=== PATIENT | male | born 1950 | race Caucasian/White ===

== ENCOUNTER → 2016-06-25 | Outpatient (CLI) | payer OTHER ==
[~2016-06-25] VITALS: Ht 182.9 cm; Wt 84.3 kg
[~2016-06-25] MED LIST: BUTALB-APAP-CA1 EACH PO; CELEBREX 200 M200 M1 PO; DICLOFENAC SOD50 M1 PO; EFFEXOR XR75 MG PO; EMBEDA ER 20-01 EACH PO; EMBEDA PO; FIORICET 50-301 EACH PO; FLEXERIL PO; HYDROCODON-ACE1 EAC5 PO; HYDROCODONE-AP1 EAC6 PO; HYSINGLA ER20 MG PO; IMITREX100 MG PO; LORTAB 10-3251 EACH PO; MIRALAX255 GM; MOBIC15 MG PO; NABUMETONE 750750 M1 PO; NEURONTIN 300300 M1 PO; NORCO 5-325 TA1 EACH PO; ONDANSETRON HCL8 M2 PO; PREVACID30 MG PO; PRISTIQ50 MG PO; PROZAC20 MG PO; TOPAMAX 25 MG T25 M1 PO; VITAMIN D1000 UNI1 PO; ZOHYDRO ER10 MG PO
--- NOTE | ~2016-06-25 | HPC ---
[facility] [place] [address] [place] [address] PAIN MANAGEMENT CONSULTATION Name: PHILIPP MATIAS [id number] Admission: 06/25/16 Attend Phys: Sylvain Gallardo MD Discharge: Date of : 46 Report #: [id number] THIS REPORT FOR: //name// CC: Sylvain Linares DATE OF REGISTRATION: 06/25/2016. Followup visit for chronic low back pain with radiculopathy. The patient returns to the pain clinic today for renewal of medication. He would like to try a new anti-inflammatory and I have decided to take him off of nabumetone and place him on Celebrex 200 mg daily. The ____ medications, risks and benefits of nonsteroidal anti-inflammatory drugs, the risk of cardiac events were all discussed with the patient. Today, he reports his pain is a 7/10, it is at the low back radiating into his left leg involving the left knee. He has had epidural injections in the past, which have been helpful for this condition. PHYSICAL EXAMINATION: GENERAL: He is pleasant, does not appear overly anxious today. He is here by himself, sometimes he is here with his . He says he is doing well, does not appear to be a fall risk. VITAL SIGNS: His blood pressure is 133/93, heart rate is 83, his height is 6 feet and his BMI is 25.2. MUSCULOSKELETAL: He has limitations in the range of motion of his lumbar spine and straight leg raising bilaterally reproduces pain, more so on the left than the right today. IMPRESSION: Low back pain with radiculopathy. Given his good response to the last injection, I will repeat the injection at L4-L5. Potential risks and benefits were discussed. He would like to proceed. The patient was taken to the fluoroscopic suite ____ placed prone, skin prepped with ChloraPrep, skin anesthetized over the L4-L5 interspace. A 20-gauge Tuohy epidural needle was advanced in the epidural space with loss of resistance technique. No blood or CSF was aspirated. A 1 mL of Omnipaque was injected. Good spread of dye was observed in the epidural space followed by 3 mL of 0.5% lidocaine mixed with 80 mg of triamcinolone. He tolerated the procedure well and was observed for 45 minutes and discharged. Followup visit as needed. By: 1349 Sylvain Gallardo MD /nt
[2016-06-25 10:42] VITALS: BP 133/93
== END | disposition home or self-care (01) ==
LOC: PAIN 01-29 08:15
DX: M54.16 Radiculopathy, lumbar region (principal)

== ENCOUNTER → 2016-11-09 | Outpatient (CLI) | payer OTHER ==
[~2016-11-09] VITALS: Ht 182.9 cm; Wt 82.8 kg
[~2016-11-09] MED LIST changes: +ELIQUIS5 MG PO
--- NOTE | ~2016-11-09 | HPC ---
[facility] [address] [address] PAIN MANAGEMENT CONSULTATION Name: PHILIPP MATIAS Room #: REG [facility].#: [id number] Admission: 11/09/16 Attend Phys: Sylvain Gallardo MD Discharge: Date of : 46 Report #: [id number] THIS REPORT FOR: //name// CC: Sylvain Linares Followup visit for cervicalgia with radiculopathy. The patient presents to pain clinic today primarily complaining of neck pain. Pain is in his neck, radiating into the shoulder and he has numbness and tingling into his arm. He says that much of this occurred shortly after surgery and he was told that it might be related to his interscalene nerve block performed for postoperative pain relief. He has numbness in the C6 distribution. He has had an uneventful summer. In August, he was diagnosed with pulmonary embolism. He was also diagnosed at the time of the brain aneurysm, which is being watched carefully. He has been on anticoagulation therapy, but has discontinued Eliquis for over 48 hours in anticipation that we can give him a cervical epidural injection today. He and his does describe chronic ongoing pain that is very distracting for him. In private, his told me that he talks about his pain all day long. It is an intensity of 8/10 in his neck, shoulder. He also complains of a second pain generated in his low back and leg, which has responded in the past to epidural injection. MEDICATIONS: Fioricet 50-300-40 as needed for severe headache, Topamax 25 mg daily, Imitrex as needed 9-10 times monthly, Prevacid 30 mg capsule daily, MiraLax daily, gabapentin 300 mg 2 tablets at bedtime, Effexor 75 mg daily, Eliquis discontinued as noted on Wednesday evening. PHYSICAL EXAMINATION: GENERAL: He is a pleasant, but anxious gentleman. VITAL SIGNS: Blood pressure 137/85, heart rate 73, BMI is 24.8. NECK: Examination of the neck reveals small scar from previous anterior cervical diskectomy and fusion at L2-L3. MUSCULOSKELETAL: There is decreased range of motion in all planes due to pain. On the right side of the neck, there is discomfort and tenderness along the paravertebral musculature as well as in the trapezius, splenius capitis and . This pain radiates into the deltoid. Deep tendon reflexes are diminished biceps, triceps and brachioradialis on the right. Group Worker strength, biceps and triceps strength are all felt to be normal. Examination of reflexes in the lower extremity are normal with no evidence of hyperreflexia. X-rays include a cervical MRI, which shows degenerative changes at C4-C5 and C5-C6 with anterolisthesis of C5-C6. [facility] [address] [place] [address] PAIN MANAGEMENT CONSULTATION Name: PHILIPP MATIAS Room #: REG CLTiny [facility]ton#: [id number] Admission: 11/09/16 Attend Phys: Sylvain Gallardo MD Discharge: Date of : 46 Report #: [id number] IMPRESSION: Cervical radiculopathy on the right. RECOMMENDATIONS: Epidural steroid injection under fluoroscopic guidance. Potential risks and benefits were discussed. He would like to proceed with an injection today. He was taken to fluoroscopic suite for treatment, placed prone, skin prepped with ChloraPrep and anesthetized at the C7-T1 interspace. I attempted to identify the C6-C7 interspace, but there was great deal osteophytic obstruction. I was unable to advance the needle at that level. At C7-T1, I was able to easily advance 20-gauge Tuohy epidural needle into the epidural space under local seizure. It was advanced in the epidural space using loss of resistance and needle was advanced to the right of midline. 1 mL of Omnipaque demonstrated excellent spread of dye extending cephalad and the 1 mL of dye was seen to extend as far as C3. It was then followed by 3 mL of 0.5% lidocaine mixed with 80 mg triamcinolone. He tolerated the procedure well and was observed for 45 minutes and then discharged. Pain was reduced to 3 at discharge. Followup visit planned in 1 month. By: 1711 0536 Sylvain Gallardo MD /nt
[2016-11-09 15:01] VITALS: BP 137/85
== END | disposition home or self-care (01) ==
LOC: PAIN 10:37
DX: M54.12 Radiculopathy, cervical region (principal); G89.29 Other chronic pain; Z79.01 Long term (current) use of anticoagulants; Z86.711 Personal history of pulmonary embolism; Z86.79 Personal history of other diseases of the circulatory system; Z98.890 Other specified postprocedural states

== ENCOUNTER → 2016-11-30 | Outpatient (CLI) | payer OTHER ==
[~2016-11-30] VITALS: Ht 182.9 cm; Wt 82.8 kg
--- NOTE | ~2016-11-30 | HPC ---
[facility] [address] [place] [address] PAIN MANAGEMENT CONSULTATION Name: PHILIPP MATIAS [facility]#: [id number] Admission: 11/30/16 Attend Phys: Sylvain Gallardo MD Discharge: Date of : 46 Report #: [id number] THIS REPORT FOR: //name// CC: Sylvain Linares DATE OF SERVICE: 11/30/2016 DATE OF SERVICE: 11/30/2016 Followup visit for cervicalgia, tension headaches, migraine headaches and cervical radiculopathy. The patient's cervical epidural injection provided quite a bit of relief for his radiculopathy. He has some occasional pain and numbness into his arms, but it is much improved. He continues to have tension headaches and upper back pain that is myofascial in nature. He remains on a blood thinner due to his DVT. Today, he scores his pain as a 3/10. Most of his pain that accelerates through the day, comes from an area around the vertebral prominens at C7 and around the trapezius muscle extending down into the rhomboids. When this pain develops, he then develops tension through his neck up into his occiput and headache develops. MEDICATIONS: Eliquis, Effexor, gabapentin, MiraLax, sumatriptan, Topamax, Fioricet. ALLERGIES: None. PHYSICAL EXAMINATION: He has multiple myofascial tender points in the area of the trapezius. Tenderness that radiates pain up into the neck, where he has tension as well, but no trigger points. He has a headache today. Strength and sensation are normal in the upper extremities. IMPRESSION: 1. Chronic cervicalgia status post cervical fusion. 2. Myofascial pain contributing to tension occipital headaches. 3. History of anxiety and depression. 4. Cervical radiculopathy, much improved following injections. 5. Chronic low back pain. RECOMMENDATIONS: Trigger point injections trapezius and rhomboid muscle groups. PROCEDURE: Skin was prepped with ChloraPrep and a 27-gauge needle was used to inject 5 separate trigger points in the trapezius on the left and 5 on the right. Each injection performed with 2 mL of 0.25% bupivacaine with 1 mg/mL of triamcinolone. Following the injection, gentle massage was performed to help [address] [address] PAIN MANAGEMENT CONSULTATION Name: PHILIPP MATIAS Room #: REG CL[facility]#: [id number] Admission: 11/30/16 Attend Phys: Sylvain Gallardo MD Discharge: Date of : 46 Report #: [id number] with medication dispersion throughout the muscle fibers. Ice was applied for a brief time in the clinic and he was discharged. There was no swelling or discomfort suggesting bleeding. Followup visit is planned on a p.r.n. basis. By: 1445 1518 Sylvain Gallardo MD /nt
[2016-11-30 09:53] VITALS: BP 119/80
== END | disposition home or self-care (01) ==
LOC: PAIN 06:57
DX: M79.1 Myalgia (principal); M54.2 Cervicalgia; M54.12 Radiculopathy, cervical region; M54.5 Low back pain; F41.9 Anxiety disorder, unspecified; F32.9 Major depressive disorder, single episode, unspecified; Z79.899 Other long term (current) drug therapy

== ENCOUNTER → 2017-01-25 | Outpatient (CLI) | payer OTHER ==
[~2017-01-25] VITALS: Ht 182.9 cm; Wt 82.6 kg
--- NOTE | ~2017-01-25 | HPC ---
[facility] [place] [address] [place] [address] PAIN MANAGEMENT CONSULTATION Name: PHILIPP MATIAS [facility] #: [facility] [id number] Admission: 01/25/17 Attend Phys: Sylvain Gallardo MD Discharge: Date of : 46 Report #: [id number] THIS REPORT FOR: //name// CC: Sylvain Linares DATE OF SERVICE: 01/25/2017 Followup visit for cervical radiculopathy. The patient returns to pain clinic today with pain in his neck, radiating down into his right arm. He is off his Eliquis. His television parts tester took him off a few months ago because he was having some side effects. He told him that was no longer necessary. We previously performed cervical epidural injections for his post-cervical fusion pain. He has spinal stenosis noted. He is not a candidate nor is he interested at this time in additional surgery. Pain is described as 4/10, intense at times. Radiation into his right arm with numbness has been more persistent recently. MEDICATIONS: Reviewed and reconciled. We have discussed opioid medications today. He had some questions about pain patches. He is already on Fioricet, but does not take an opioid. He is on a daily dose of Effexor and gabapentin to help with headaches, depression and anxiety as well as with general pain. His BMI is 24.7. Appetite good. He needs no discussion about diet. PHYSICAL EXAMINATION: Blood pressure 139/99, heart rate 78, respirations 20. He is 6 feet tall, 182 pounds. Examination of the neck reveals a small scar anteriorly from previous anterior cervical diskectomy and fusion. Pain is noticed with both flexion and extension, worse with extension, which exacerbates pain into the right arm. Mild weakness is noted in cold meat chef. Generalized numbness and tingling is noted along the medial aspect of the forearm. He has tenderness in the muscles in the trapezius suprascapular region and also along the rhomboids. IMPRESSION: 1. Cervicalgia post anterior cervical diskectomy and fusion. 2. Cervical radiculopathy secondary to spinal stenosis in the cervical region. PLAN: 1. Cervical epidural steroid injection. 2. We discussed the use of Salonpas 4% as a trial for the topical agent. 3. Follow up in the pain clinic in 2-3 months. PROCEDURE: Cervical epidural injection. [address] [address] PAIN MANAGEMENT CONSULTATION Name: PHILIPP MATIAS [facility] #: [facility]#: [id number] Admission: 01/25/17 Attend Phys: Sylvain Gallardo MD Discharge: Date of : 46 Report #: [id number] PROCEDURE NOTE: He was taken to fluoroscopic suite, placed prone, skin prepped with ChloraPrep. Skin anesthetized over C6-C7. A 20-gauge Tuohy epidural needle advanced into the epidural space with loss of resistance on first attempt. No blood or CSF was aspirated. 1 mL of Omnipaque injected with excellent spread of dye observed bilaterally into the epidural space followed by 3 mL of 0.5% lidocaine mixed with 80 mg triamcinolone. He tolerated the procedure well and was taken to recovery for observation and discharged in an hour. There were no complications. Follow up as needed. By: 1351 1404 Sylvain Gallardo MD /nt
[2017-01-25 13:06] VITALS: BP 139/99
== END | disposition home or self-care (01) ==
LOC: PAIN 07:03
DX: M54.12 Radiculopathy, cervical region (principal); M48.02 Spinal stenosis, cervical region; F41.8 Other specified anxiety disorders; F32.89 Other specified depressive episodes; Z98.890 Other specified postprocedural states

== ENCOUNTER → 2017-07-12 | Outpatient (CLI) | payer OTHER ==
[~2017-07-12] VITALS: Ht 182.9 cm; Wt 82.1 kg
--- NOTE | ~2017-07-12 | HPC ---
[facility] [place] [place] [address] [address] [place] [address] PAIN MANAGEMENT CONSULTATION Name: PHILIPP MATIAS [facility] #: [facility]#: [id number] Admission: 07/12/17 Attend Phys: Sylvain Gallardo MD Discharge: Date of : 46 Report #: [id number] THIS REPORT FOR: //name// CC: Sylvain Linares DATE OF SERVICE: 07/12/2017 Followup visit for chronic cervicalgia with occipital headaches on the left and lumbar radiculopathy. The patient returns to pain clinic today complaining primarily of neck pain that radiates up into the occiput as well as low back pain radiating into the legs with radiculopathy. He has been treated with injections for both of these conditions in my clinic. Cervical epidural injection was performed twice in 2016 with mixed results. I have also performed trigger point injections and have injected cervical facet joints as far back as 2013. Today, his pain appears to be mechanical and related to his worsening facet arthritis. The low back pain is also troublesome that radiates from his back down into his legs. Pain is similar in each leg. It radiates down the L4-L5 distribution. Epidural injections in the lumbar region have been helpful for this condition and it has been over 10 months since his last epidural injection. He would like an injection there as well after we have treated his cervical pain. MEDICATIONS: Fioricet 1 capsule daily, Prevacid, MiraLax, gabapentin 300 mg 2 tablets at bedtime, venlafaxine 75 mg daily. He occasionally takes sumatriptan. He is not on a blood thinner and has no hypertension. He is not on an opioid and therefore, has not completed an agreement, risk assessment or functional assessment tool. He has some osteoarthritis, but no history of rheumatoid arthritis. He has maintained his weight well with a BMI of 24.5. PHYSICAL EXAMINATION: Blood pressure 127/78, heart rate 72, respirations 16. He has neck pain with forward flexion and extension with quite a bit of limitation in the lateral tilt and rotation all exacerbating pain on the left, radiating into the occiput. There is a small anterior scar from her previous C3-C4 anterior cervical diskectomy and fusion. Strength in the upper and lower extremities is within normal limits. Examination of the low back reveals pain with forward flexion and extension. Straight leg raising bilaterally reproduces pain in the L4-L5 distribution. IMPRESSION: 1. Chronic cervicalgia status post cervical fusion. 2. Cervical facet arthritis above and below the level of fusion. 3. Myofascial pain with tension-type headaches. [address] [address] PAIN MANAGEMENT CONSULTATION Name: PHILIPP MATIAS Room #: REG CLI [facility].#: [id number] Admission: 07/12/17 Attend Phys: Sylvain Gallardo MD Discharge: Date of : 46 Report #: [id number] 4. History of anxiety and depression. 5. History of cervical radiculopathy, which has resolved with cervical epidural injections. 6. Chronic low back pain with radiculopathy. PLAN: 1. Left cervical facet injections, C2-C3, C3-C4, C4-C5 under fluoroscopic guidance. 2. Return to the pain clinic for lumbar epidural injection in 2-3 weeks. DESCRIPTION OF PROCEDURE: He was taken to fluoroscopic suite. He was placed prone, skin was prepped with ChloraPrep. Skin was anesthetized overlying the C2-C3, C3-C4, C4-C5 cervical facet joints, 25-gauge needles were advanced from a lateral approach into the lateral capsule at each level. AP and lateral views confirming location. I injected through each needle 0.5 mL of Omnipaque to demonstrate an extravascular spread. This was then followed at each level by 1.5 mL of 0.5% bupivacaine mixed with 20 mg of triamcinolone. He tolerated the procedures well. He was taken to recovery room in good condition. His pain score had reduced dramatically to a 2 at discharge from a 6 on admission. No medications were ordered. Followup visit is scheduled for lumbar epidural injection in 2-3 weeks. <ELECTRONICALLY SIGNED> By: Sylvain Gallardo MD 08/23/17 1230 1540 [id number] Sylvain Gallardo MD /nt
[2017-07-12 10:22] VITALS: BP 127/78
== END ==
LOC: PAIN 06-21 07:37
DX: M47.812 Spondylosis without myelopathy or radiculopathy, cervical region (principal); M54.2 Cervicalgia; G89.29 Other chronic pain; M79.1 Myalgia; G44.209 Tension-type headache, unspecified, not intractable; M19.90 Unspecified osteoarthritis, unspecified site; M54.16 Radiculopathy, lumbar region; Z86.59 Personal history of other mental and behavioral disorders; Z79.899 Other long term (current) drug therapy; Z98.890 Other specified postprocedural states

== ENCOUNTER → 2017-07-26 | Outpatient (CLI) | payer OTHER ==
[~2017-07-26] VITALS: Ht 182.9 cm; Wt 81.0 kg
--- NOTE | ~2017-07-26 | HPC ---
[facility] [place] [address] PAIN MANAGEMENT CONSULTATION Name: PHILIPP MATIAS [facility] [id number] Admission: 07/26/17 Attend Phys: Sylvain Gallardo MD Discharge: Date of : 46 Report #: [id number] THIS REPORT FOR: //name// CC: Sylvain Linares MD DATE OF SERVICE: 07/26/2017 Followup visit for chronic pain with multiple pain generators. Pain includes chronic cervicalgia with occipital headaches on the left and chronic lumbar radiculopathy. Last visit for the patient was on 07/12 when I performed injections on the left of the cervical facet C2-C3, C3-C4, C4-C5 under fluoroscopic guidance. He had 2 weeks of almost complete pain relief and improvement in his headaches, confirming our conviction that this was cervicogenic headaches related to his cervical spondylosis. Unfortunately, the pain returned. I discussed briefly with him today the possibility of medial branch nerve block, followed by radiofrequency ablation in that location. I think that there is a good chance, perhaps up to 60%, that if we complete this process that we might provide some more lasting relief. He will consider that option for his neck. He is here today for his low back, which was discussed at last visit. It remains problematic for him with ongoing severe pain that he describes as a 6 in his lumbosacral region with radiation, primarily into the left leg, although it does involve both legs. It follows an L4-L5 distribution. In the past, we have treated him successfully with epidural injections. As noted previously, it has been 10 months since his last epidural injection. MEDICATIONS: Reviewed and reconciled. He is on no blood thinners. He has no interval change in his health since his last visit, which was less than 3 weeks ago. PHYSICAL EXAMINATION: MUSCULOSKELETAL: Exam today of the low back reveals tenderness across the lumbosacral segment, pain with forward flexion and extension as well as lateral tilt. Straight leg raising in the low back reproduces pain bilaterally, following the anterior lateral aspect of each leg as far as the calf. Sensation and strength are adequate and within normal limits. IMPRESSION: 1. Chronic low back pain with radiculopathy. 2. Cervicalgia with occipital headaches. 3. Some component of tension type headache. [address] [address] PAIN MANAGEMENT CONSULTATION Name: PHILIPP MATIAS Room #: REG [facility]#: [id number] Admission: 07/26/17 Attend Phys: Sylvain Gallardo MD Discharge: Date of : 46 Report #: [id number] 4. History of anxiety and depression. PROCEDURE: Lumbar epidural injection L4-L5 under fluoroscopic guidance. PROCEDURE: He was taken to the fluoroscopic suite for treatment, placed prone, skin prepped with ChloraPrep. Skin anesthetized over L4-L5. A 20-gauge Tuohy epidural needle was advanced first attempt in the epidural space with loss of resistance technique. There was no blood or CSF aspirated. 1 mL of Omnipaque injected. Good spread of dye observed in the epidural space, was followed then by 3 mL of 0.5% lidocaine mixed with 80 mg of triamcinolone. He tolerated the procedure well and was observed for 45 minutes. He was discharged following. Pain score was 0 at discharge. I will see him as needed in the future. No medications ordered today. By: 1047 1432 Sylvain Gallardo MD /nt
[2017-07-26 14:34] VITALS: BP 142/78
== END | disposition home or self-care (01) ==
LOC: PAIN 07:07
DX: M54.16 Radiculopathy, lumbar region (principal); G89.29 Other chronic pain; M54.2 Cervicalgia; G44.89 Other headache syndrome; Z86.59 Personal history of other mental and behavioral disorders; Z98.890 Other specified postprocedural states; Z79.899 Other long term (current) drug therapy